=== PATIENT | male | born 1960 | race Caucasian/White ===

== ENCOUNTER 2022-01-15 18:15 | Emergency (ER) | payer OTHER ==
[~2022-01-15] VITALS: Ht 172.7 cm; Wt 60.9 kg
[~2022-01-15 18:15] MED LIST: CHAN0.5P; EXCETAB; MAXA5TAB; TRAM50TA2
[2022-01-15] MEDS ORDERED: HYDR25OI TOP (20:53)
[2022-01-15] MEDS ORDERED: BENA25CA4 PO (20:53)
[2022-01-15] MEDS ORDERED: diphenhydrAMINE 50MG CAP PO ONE (20:55)
[2022-01-15 21:12] VITALS: BP 130/78
== END 2022-01-15 21:15 | disposition home or self-care (01) ==
LOC: M ED 18:15
DX: T78.40XA Allergy, unspecified, initial encounter (principal); M54.9 Dorsalgia, unspecified; F17.200 Nicotine dependence, unspecified, uncomplicated; Z88.0 Allergy status to penicillin

== ENCOUNTER 2022-04-17 10:17 | Emergency (ER) | payer OTHER ==
[~2022-04-17 10:17] MED LIST changes: +BENA25CA4 PO; +HYDR25OI TOP
[2022-04-17 10:54] LABS: HEMOGLOBIN 17.9 g/dl (13.5-17.5); MEAN CORPUSCULAR HEMOGLOBIN 29.6 pg (27.0-33.0); MEAN CORPUSCULAR HGB CONC 33.1 g/dl (32.0-36.5); MEAN CORPUSCULAR VOLUME 89.3 fl (80.0-96.0); PLATELET COUNT, AUTOMATED 172 10^3/uL (150-450); RED BLOOD COUNT 6.05 10^6/uL (4.30-6.10); WHITE BLOOD COUNT 6.6 10^3/uL (4.0-10.0)
[2022-04-17 11:31] LABS: ALBUMIN 3.9 G/DL (3.2-5.2); ALT/SGPT 26 U/L (7.0-40); BILIRUBIN,DIRECT 0.3 MG/DL (<0.4); BILIRUBIN,TOTAL 0.6 MG/DL (0.3-1.2); BLOOD UREA NITROGEN 18 MG/DL (9-23); CALCIUM LEVEL 8.8 MG/DL (8.3-10.6); CARBON DIOXIDE LEVEL 21 MMOL/L (20-31); CHLORIDE LEVEL 102 MMOL/L (98-107); CREATININE FOR GFR 0.88 MG/DL (0.70-1.30); GLOMERULAR FILTRATION RATE > 60.0 (>49); GLUCOSE, FASTING 94 MG/DL (74-106); POTASSIUM SERUM 3.4 MMOL/L (3.5-5.1); SODIUM LEVEL 141 MMOL/L (136-145); TOTAL PROTEIN 6.9 G/DL (5.7-8.2)
[2022-04-17 11:32] LABS: RSV AMPLIFICATION NEGATIVE (NEGATIVE)
[2022-04-17 11:55] LABS: ATYPICAL LYMPH 9 % (0-5); LYMPHOCYTES 25 % (16-44); MONOCYTES 13 % (0-5); NEUTROPHILS 53 % (28-66); PLATELET ESTIMATE NORMAL (NORMAL)
[2022-04-17 12:00] LABS: POIKILOCYTOSIS 1+
[2022-04-17 12:01] LABS: TEAR DROP CELLS 1+
[2022-04-17] MEDS ORDERED: NIRMATRELVIR/RITONAVIR CO-PACK (EMERGENCY USE AUTH) PO SCH ×2 (12:45→21:00)
[2022-04-17 14:00] VITALS: BP 131/76
[2022-04-17] MEDS ORDERED: GABA-1171 PO (14:55)
[2022-04-17] MEDS ORDERED: BUPR150T12 PO (14:55)
[2022-04-17] MEDS ORDERED: ALBU8.5H INH (14:55)
[2022-04-17] MEDS ORDERED: FLUT1BLS5 INH (14:55)
[2022-04-17] MEDS ORDERED: LISI10TA22 PO (14:55)
[2022-04-17] MEDS ORDERED: HOME MED LIST COMPLETE! XX SCH (15:00)
[2022-04-17] MEDS ORDERED: PRED10TA2 PO (15:50)
== END 2022-04-17 16:10 | disposition home or self-care (01) ==
LOC: M ED 10:17 → EDBD 10:17 → M ED 16:10
DX: J44.1 Chronic obstructive pulmonary disease with (acute) exacerbation (principal); U07.1 COVID-19; I45.19 Other right bundle-branch block; I10 Essential (primary) hypertension; G89.29 Other chronic pain; M54.9 Dorsalgia, unspecified; F17.200 Nicotine dependence, unspecified, uncomplicated; Z79.51 Long term (current) use of inhaled steroids; Z79.899 Other long term (current) drug therapy

== ENCOUNTER 2022-05-07 16:58 | Emergency (ER) | payer OTHER ==
[~2022-05-07] VITALS: Ht 172.7 cm; Wt 65.9 kg
[~2022-05-07 16:58] MED LIST changes: +ALBU8.5H INH; +BUPR150T12 PO; +FLUT1BLS5 INH; +GABA-1171 PO; +LISI10TA22 PO; +PRED10TA2 PO
[2022-05-07] MEDS ORDERED: diphenhydrAMINE 50MG/ML VIAL IV STA (23:27)
[2022-05-07] MEDS ORDERED: ACETAMINOPHEN 500 MG TAB PO ONE (23:30)
[2022-05-07] MEDS ORDERED: NS 1,000 ML IV ONE (23:30)
[2022-05-08] MEDS ORDERED: KETOROLAC 30 MG/ML 1ML VIAL IV ONE (01:55)
[2022-05-08 02:56] VITALS: BP 121/72
== END 2022-05-08 03:07 | disposition home or self-care (01) ==
LOC: M ED 16:58
DX: G43.909 Migraine, unspecified, not intractable, without status migrainosus (principal); I10 Essential (primary) hypertension; J44.9 Chronic obstructive pulmonary disease, unspecified; F17.200 Nicotine dependence, unspecified, uncomplicated; Z86.16 Personal history of COVID-19; Z79.899 Other long term (current) drug therapy; Z88.0 Allergy status to penicillin
CPT/HCPCS: 70450; 87428; 96361; 96374; 96375; 99284; J1200; J1885

== ENCOUNTER 2022-05-11 03:36 | Emergency (ER) | payer OTHER ==
[~2022-05-11] VITALS: Ht 172.7 cm; Wt 65.9 kg
[2022-05-11] MEDS ORDERED: diphenhydrAMINE 50MG/ML VIAL IV ONE (06:35)
[2022-05-11] MEDS ORDERED: NS 1,000 ML IV ONE (06:35)
[2022-05-11] MEDS ORDERED: ACETAMINOPHEN 500 MG TAB PO ONE (06:35)
[2022-05-11] MEDS ORDERED: PROMETHAZINE 25MG/ML 1ML VIAL IV ONE (06:35)
[2022-05-11] MEDS ORDERED: KETOROLAC 30 MG/ML 1ML VIAL IV ONE (08:30)
[2022-05-11] MEDS ORDERED: ACET-897 PO (09:34)
[2022-05-11 16:32] LABS: BASO % 0.2 % (0.0-1.0); HEMATOCRIT 45.2 % (42.0-52.0); HEMOGLOBIN 15.1 g/dl (13.5-17.5); LYMPH # 0.7 10^3/uL (1.5-5.0); LYMPH % 10.4 % (24.0-44.0); MEAN CORPUSCULAR HEMOGLOBIN 29.3 pg (27.0-33.0); MEAN CORPUSCULAR HGB CONC 33.4 g/dl (32.0-36.5); MEAN CORPUSCULAR VOLUME 87.6 fl (80.0-96.0); MONO # 0.1 10^3/uL (0.0-0.8); MONO % 1.5 % (2.0-8.0); NEUTROPHILS # 5.8 10^3/uL (1.5-8.5); NEUTROPHILS % 87.6 % (36.0-66.0); PLATELET COUNT, AUTOMATED 325 10^3/uL (150-450); RED BLOOD COUNT 5.16 10^6/uL (4.30-6.10); WHITE BLOOD COUNT 6.7 10^3/uL (4.0-10.0)
[2022-05-11 16:42] LABS: INR 0.98; PROTHROMBIN TIME 13.2 SECONDS (12.5-14.5)
[2022-05-11 16:43] LABS: PARTIAL THROMBOPLASTIN TIME 29.3 SECONDS (24.8-34.2)
[2022-05-11 16:51] LABS: MAGNESIUM LEVEL 1.9 MG/DL (1.8-2.4)
[2022-05-11 16:56] LABS: BLOOD UREA NITROGEN 15 MG/DL (9-23); CALCIUM LEVEL 8.5 MG/DL (8.3-10.6); CARBON DIOXIDE LEVEL 18 MMOL/L (20-31); CHLORIDE LEVEL 108 MMOL/L (98-107); CREATININE FOR GFR 0.69 MG/DL (0.70-1.30); GLOMERULAR FILTRATION RATE > 60.0 (>49); GLUCOSE, FASTING 103 MG/DL (74-106); SODIUM LEVEL 137 MMOL/L (136-145)
[2022-05-11 18:32] LABS: RSV AMPLIFICATION NEGATIVE (NEGATIVE)
[2022-05-11] MEDS ORDERED: APIXABAN 5 MG TAB (ELIQUIS) PO ONE (19:10)
[2022-05-11] MEDS ORDERED: ELIQ5TAB PO (19:25)
[2022-05-11 19:35] VITALS: BP 136/76
== END 2022-05-11 20:01 | disposition home or self-care (01) ==
LOC: M ED 03:36 → EDBD 03:36 → M ED 20:01
DX: I67.6 Nonpyogenic thrombosis of intracranial venous system (principal); I82.C12 Acute embolism and thrombosis of left internal jugular vein; R51.9 Headache, unspecified; I10 Essential (primary) hypertension; M54.2 Cervicalgia; M54.9 Dorsalgia, unspecified; J44.9 Chronic obstructive pulmonary disease, unspecified; F32.9 Major depressive disorder, single episode, unspecified; F41.9 Anxiety disorder, unspecified; Z87.891 Personal history of nicotine dependence
CPT/HCPCS: 70450; 70544; 70551; 80048; 83735; 85025; 85610; 85730; 87631; 96374; 96375; 99284; J1100; J1200; J1885; J2550

== ENCOUNTER → 2022-10-09 | Outpatient (REF) | payer OTHER ==
[~2022-10-09] MED LIST changes: +ACET-897 PO; +ELIQ5TAB PO
[2022-10-09 18:42] LABS: BASO % 0.5 % (0.0-1.0); EOS # 0.1 10^3/uL (0.0-0.5); EOS % 0.6 % (0.0-3.0); HEMATOCRIT 54.3 % (42.0-52.0); HEMOGLOBIN 18.2 g/dl (13.5-17.5); LYMPH # 2.2 10^3/uL (1.5-5.0); LYMPH % 26.1 % (24.0-44.0); MEAN CORPUSCULAR HEMOGLOBIN 30.1 pg (27.0-33.0); MEAN CORPUSCULAR HGB CONC 33.5 g/dl (32.0-36.5); MEAN CORPUSCULAR VOLUME 89.9 fl (80.0-96.0); MONO # 0.8 10^3/uL (0.0-0.8); MONO % 8.9 % (2.0-8.0); NEUTROPHILS # 5.4 10^3/uL (1.5-8.5); NEUTROPHILS % 63.5 % (36.0-66.0); PLATELET COUNT, AUTOMATED 291 10^3/uL (150-450); RED BLOOD COUNT 6.04 10^6/uL (4.30-6.10); WHITE BLOOD COUNT 8.5 10^3/uL (4.0-10.0)
[2022-10-09 18:58] LABS: C REACTIVE PROTEIN QUANTITATIV 2.8 MG/DL (<1.0)
[2022-10-19 18:07] LABS: LIPOPROTEIN (a) 15.6 nmol/L (<75.0)
== END ==
LOC: M SFHCPLAZ 16:52
PROVIDERS: ATTEND Internal Medicine Hematology
DX: I82.90 Acute embolism and thrombosis of unspecified vein (principal)

== ENCOUNTER → 2022-10-10 | Outpatient (CLI) | payer OTHER | LOC: M RAD 12:55 | PROVIDERS: ATTEND Physician Assistant | DX: Z87.891 Personal history of nicotine dependence (principal); J44.9 Chronic obstructive pulmonary disease, unspecified; R91.8 Other nonspecific abnormal finding of lung field ==

== ENCOUNTER → 2022-10-10 | Outpatient (CLI) | payer OTHER | LOC: M LAB 12:58 | PROVIDERS: ATTEND Internal Medicine Hematology | DX: I82.90 Acute embolism and thrombosis of unspecified vein (principal) ==

== ENCOUNTER 2022-11-01 21:14 | Emergency (ER) | payer OTHER ==
[~2022-11-01] VITALS: Ht 172.7 cm; Wt 68.2 kg
[2022-11-01 21:55] LABS: BASO # 0.1 10^3/uL (0.0-0.2); BASO % 0.5 % (0.0-1.0); EOS # 0.1 10^3/uL (0.0-0.5); EOS % 0.5 % (0.0-3.0); HEMATOCRIT 48.3 % (42.0-52.0); HEMOGLOBIN 16.3 g/dl (13.5-17.5); MEAN CORPUSCULAR HEMOGLOBIN 29.9 pg (27.0-33.0); MEAN CORPUSCULAR HGB CONC 33.7 g/dl (32.0-36.5); MEAN CORPUSCULAR VOLUME 88.5 fl (80.0-96.0); MONO # 1.2 10^3/uL (0.0-0.8); MONO % 6.4 % (2.0-8.0); PLATELET COUNT, AUTOMATED 349 10^3/uL (150-450); RED BLOOD COUNT 5.46 10^6/uL (4.30-6.10); WHITE BLOOD COUNT 18.5 10^3/uL (4.0-10.0)
[2022-11-01] MEDS ORDERED: NS 1,000 ML IV ONE (22:25)
[2022-11-01] MEDS ORDERED: HALOPERIDOL 5MG/ML 1ML VIAL IV ONE (22:25)
[2022-11-01 22:28] LABS: LIPASE 40 U/L (12-53)
[2022-11-01 22:30] LABS: ALKALINE PHOSPHATASE 78 U/L (46-116); ALT/SGPT 20 U/L (7.0-40); AST/SGOT 12 U/L (<34); BILIRUBIN,DIRECT 0.1 MG/DL (<0.4); BILIRUBIN,TOTAL 0.4 MG/DL (0.3-1.2); BLOOD UREA NITROGEN 15 MG/DL (9-23); CALCIUM LEVEL 9.1 MG/DL (8.3-10.6); CARBON DIOXIDE LEVEL 22 MMOL/L (20-31); CHLORIDE LEVEL 104 MMOL/L (98-107); CREATININE FOR GFR 0.89 MG/DL (0.70-1.30); GLOMERULAR FILTRATION RATE > 60.0 (>49); GLUCOSE, FASTING 130 MG/DL (74-106); POTASSIUM SERUM 4.4 MMOL/L (3.5-5.1); SODIUM LEVEL 137 MMOL/L (136-145); TOTAL PROTEIN 6.7 G/DL (5.7-8.2)
[2022-11-02] MEDS ORDERED: LevoFLOXacin IV 750 MG in IV 1 EA IV ONE (00:10)
[2022-11-02] MEDS ORDERED: NS 1,000 ML IV ONE (00:35)
[2022-11-02] MEDS ORDERED: ONDA4TAB6 PO (01:27)
[2022-11-02] MEDS ORDERED: LEVO1TAB40 PO (01:27)
[2022-11-02 02:21] VITALS: BP 134/67; TEMP 98.6; O2SAT 96
== END 2022-11-02 02:41 | disposition home or self-care (01) ==
LOC: M ED 21:14 → EDBD 21:14 → M ED 11-02 02:41
DX: J18.9 Pneumonia, unspecified organism (principal); F12.188 Cannabis abuse with other cannabis-induced disorder; I10 Essential (primary) hypertension; J44.9 Chronic obstructive pulmonary disease, unspecified; Z79.899 Other long term (current) drug therapy; Z88.0 Allergy status to penicillin; Z88.2 Allergy status to sulfonamides; Z88.1 Allergy status to other antibiotic agents
CPT/HCPCS: 71045; 80048; 80076; 83605; 83690; 85025; 96361; 96365; 96366; 96375; 99284; J1630; J1956

== ENCOUNTER → 2022-11-15 | Outpatient (REF) | payer OTHER ==
[~2022-11-15] MED LIST changes: +LEVO1TAB40 PO; +ONDA4TAB6 PO
[2022-11-15 19:10] LABS: HIV 1&2 SCREEN NEGATIVE (NEGATIVE)
[2022-11-15 19:18] LABS: HEPATITIS C VIRUS ABY INDEX 0.08 INDEX (<0.8)
[2022-11-15 19:28] LABS: BLOOD UREA NITROGEN 13 MG/DL (9-23); CALCIUM LEVEL 8.8 MG/DL (8.3-10.6); CARBON DIOXIDE LEVEL 25 MMOL/L (20-31); CHLORIDE LEVEL 105 MMOL/L (98-107); CREATININE FOR GFR 0.95 MG/DL (0.70-1.30); GLOMERULAR FILTRATION RATE > 60.0 (>49); GLUCOSE, FASTING 90 MG/DL (74-106); SODIUM LEVEL 138 MMOL/L (136-145)
== END ==
LOC: M LAB REF 17:33
PROVIDERS: ATTEND Physician Assistant
DX: Z11.59 Encounter for screening for other viral diseases (principal); Z11.4 Encounter for screening for human immunodeficiency virus [HIV]; I10 Essential (primary) hypertension; R39.11 Hesitancy of micturition

== ENCOUNTER → 2022-11-20 | Outpatient (CLI) | payer OTHER | LOC: M PLALAB 13:36 | PROVIDERS: ATTEND Internal Medicine Hematology | DX: D75.1 Secondary polycythemia (principal) ==

== ENCOUNTER → 2023-04-17 | Outpatient (REF) | payer OTHER ==
[2023-04-17 17:06] LABS: HEMOGLOBIN A1c 5.3 % (4.0-6.0)
[2023-04-17 17:12] LABS: ALBUMIN 3.9 G/DL (3.2-5.2); ALKALINE PHOSPHATASE 95 U/L (46-116); ALT/SGPT 10 U/L (7.0-40); AST/SGOT 13 U/L (<34); BILIRUBIN,TOTAL 0.7 MG/DL (0.3-1.2); BLOOD UREA NITROGEN 13 MG/DL (9-23); CALCIUM LEVEL 8.9 MG/DL (8.3-10.6); CARBON DIOXIDE LEVEL 28 MMOL/L (20-31); CHLORIDE LEVEL 102 MMOL/L (98-107); CHOLESTEROL LEVEL 157 MG/DL (<200); CHOLESTEROL RISK RATIO 3.81 (<5); CREATININE FOR GFR 0.96 MG/DL (0.70-1.30); GLOMERULAR FILTRATION RATE > 60.0 (>49); GLUCOSE, FASTING 77 MG/DL (74-106); HDL CHOLESTEROL 41.2 MG/DL (>40); LDL CHOLESTEROL 96.4 MG/DL (<100); NON-HDL-C 115.8 MG/DL; POTASSIUM SERUM 5.9 MMOL/L (3.5-5.1); SODIUM LEVEL 136 MMOL/L (136-145); THYROID STIMULATING HORMONE 1.102 uIU/ML (0.55-4.78); TOTAL 25(OH) VITAMIN D 23.1 NG/ML (20.0-100.0); TOTAL PROTEIN 6.8 G/DL (5.7-8.2); TRIGLYCERIDES LEVEL 97 MG/DL (<150)
== END ==
LOC: M LAB REF 16:27
PROVIDERS: ATTEND Nurse Practitioner Family
DX: I10 Essential (primary) hypertension (principal); E55.9 Vitamin D deficiency, unspecified; Z13.228 Encounter for screening for other metabolic disorders

== ENCOUNTER 2024-05-03 18:29 | Emergency (ER) | payer OTHER ==
[~2024-05-03] VITALS: Ht 172.7 cm; Wt 63.6 kg
[~2024-05-03 18:29] MED LIST changes: +ONDA-282 PO; -ONDA4TAB6 PO; +PERC5TAB12 PO
[2024-05-03] MEDS: NS 500 ML IV ONE (19:24)
[2024-05-03] MEDS: METHOCARBAMOL 1,000 MG/10 ML VIAL IV ONE (20:00)
[2024-05-03] MEDS: NS 1,000 ML IV ONE (22:20)
[2024-05-03 22:51] LABS: BLOOD UREA NITROGEN 14 MG/DL (9-23); CALCIUM LEVEL 8.7 MG/DL (8.3-10.6); CARBON DIOXIDE LEVEL 25 MMOL/L (20-31); CHLORIDE LEVEL 109 MMOL/L (98-107); CREATININE FOR GFR 0.96 MG/DL (0.70-1.30); GLOMERULAR FILTRATION RATE > 60.0 (>49); GLUCOSE, FASTING 104 MG/DL (74-106); POTASSIUM SERUM 4.8 MMOL/L (3.5-5.1); SODIUM LEVEL 140 MMOL/L (136-145)
[2024-05-03 22:52] LABS: CPK CREATINE PHOSPHOKINASE 64 U/L (46-171)
[2024-05-03] MEDS: GABAPENTIN 300 MG CAP PO ONE (23:44)
[2024-05-04] MEDS ORDERED: METH-1165 PO (00:39)
[2024-05-04] MEDS ORDERED: PRED20TA PO (00:39)
[2024-05-04 01:02] VITALS: BP 114/69; TEMP 97.7; O2SAT 98
== END 2024-05-04 01:04 | disposition home or self-care (01) ==
LOC: M ED 18:29 → EDBD 18:29 → M ED 05-04 01:04
DX: M54.50 Low back pain, unspecified (principal); Z79.899 Other long term (current) drug therapy; Z88.0 Allergy status to penicillin; Z88.2 Allergy status to sulfonamides
CPT/HCPCS: 72131; 80047; 80048; 82550; 99284; J2800

== ENCOUNTER 2024-08-06 21:50 | Inpatient (IN) | payer OTHER ==
[~2024-08-06] VITALS: Ht 170.2 cm; Wt 78.0 kg
[~2024-08-06 21:50] MED LIST changes: +METH-1165 PO; +PRED20TA PO
[2024-08-06 22:23] LABS: VENOUS HCO3 21.6 MMOL/L (23.0-27.0); VENOUS PARTIAL PRESSURE CO2 59.6 mmHg (38.0-50.0); VENOUS PARTIAL PRESSURE O2 31.1 mmHg (30.0-50.0); VENOUS PH 7.178 UNITS (7.330-7.430); VENOUS TOTAL CO2 23.5 MMOL/L (24.0-28.0)
[2024-08-06 22:27] LABS: BASO % 0.2 % (0.0-1.0); EOS % 0.2 % (0.0-3.0); HEMATOCRIT 53.1 % (42.0-52.0); HEMOGLOBIN 18.3 g/dl (13.5-17.5); LYMPH # 1.4 10^3/uL (1.5-5.0); MEAN CORPUSCULAR HGB CONC 34.5 g/dl (32.0-36.5); MEAN CORPUSCULAR VOLUME 92.8 fl (80.0-96.0); MONO # 1.3 10^3/uL (0.0-0.8); NEUTROPHILS # 11.3 10^3/uL (1.5-8.5); NEUTROPHILS % 80.2 % (36.0-66.0); PLATELET COUNT, AUTOMATED 260 10^3/uL (150-450); RED BLOOD COUNT 5.72 10^6/uL (4.30-6.10); WHITE BLOOD COUNT 14.1 10^3/uL (4.0-10.0)
[2024-08-06] MEDS: IPRATROPIUM 0.5MG/ALBUTEROL 2.5MG INH SOL UD 3ML (DUONEB) NEB ONE (22:34)
[2024-08-06 22:40] LABS: ABG HCO3 16.5 MMOL/L (22.0-26.0); ABG O2 SATURATION 96.1 % (95.0-99.0); ABG PARTIAL PRESSURE CO2 26.5 mmHg (35.0-45.0); ABG PARTIAL PRESSURE O2 81.2 mmHg (75.0-100.0); ABG STANDARD HCO3 19.6 MMOL/L. (22.0-26.0); ABG TOTAL CO2 17.3 MMOL/L (23.0-31.0); ABG pH (ARTERIAL) 7.412 UNITS (7.350-7.450)
[2024-08-06 23:01] LABS: ALBUMIN 4.3 G/DL (3.2-5.2); ALKALINE PHOSPHATASE 98 U/L (40-129); ALT/SGPT 18 U/L (7.0-40); AST/SGOT 42 U/L (<34); BILIRUBIN,DIRECT 0.2 MG/DL (<0.4); BILIRUBIN,TOTAL 0.7 MG/DL (0.3-1.2); BLOOD UREA NITROGEN 17 MG/DL (9-23); CALCIUM LEVEL 9.1 MG/DL (8.3-10.6); CARBON DIOXIDE LEVEL 22 MMOL/L (20-31); CHLORIDE LEVEL 101 MMOL/L (98-107); CREATININE FOR GFR 0.83 MG/DL (0.70-1.30); GLOMERULAR FILTRATION RATE > 60.0 (>49); GLUCOSE, FASTING 88 MG/DL (74-106); POTASSIUM SERUM 4.5 MMOL/L (3.5-5.1); SODIUM LEVEL 138 MMOL/L (136-145); TOTAL PROTEIN 7.8 G/DL (5.7-8.2)
[2024-08-07] MEDS ORDERED: PRED10TA2 PO ×2 (00:12→04:31)
[2024-08-07] MEDS ORDERED: MED REC IN PROGRESS XX SCH (04:40)
[2024-08-07] MEDS ORDERED: MOM 30ML SUSPENSION UDC PO PRN (04:50)
[2024-08-07] MEDS: methylPREDNISolone 125MG 2ML VIAL IV SCH (06:11)
[2024-08-07 06:26] LABS: HEMATOCRIT 50.8 % (42.0-52.0); HEMOGLOBIN 17.4 g/dl (13.5-17.5); MEAN CORPUSCULAR HEMOGLOBIN 30.9 pg (27.0-33.0); MEAN CORPUSCULAR HGB CONC 34.3 g/dl (32.0-36.5); MEAN CORPUSCULAR VOLUME 90.2 fl (80.0-96.0); PLATELET COUNT, AUTOMATED 232 10^3/uL (150-450); RED BLOOD COUNT 5.63 10^6/uL (4.30-6.10); WHITE BLOOD COUNT 9.7 10^3/uL (4.0-10.0)
[2024-08-07 07:02] LABS: ALBUMIN 3.9 G/DL (3.2-5.2); ALKALINE PHOSPHATASE 86 U/L (40-129); ALT/SGPT 14 U/L (7.0-40); AST/SGOT 22 U/L (<34); BILIRUBIN,TOTAL 0.6 MG/DL (0.3-1.2); BLOOD UREA NITROGEN 19 MG/DL (9-23); CALCIUM LEVEL 9.2 MG/DL (8.3-10.6); CARBON DIOXIDE LEVEL 24 MMOL/L (20-31); CHLORIDE LEVEL 105 MMOL/L (98-107); GLOMERULAR FILTRATION RATE > 60.0 (>49); GLUCOSE, FASTING 112 MG/DL (74-106); POTASSIUM SERUM 4.6 MMOL/L (3.5-5.1); SODIUM LEVEL 139 MMOL/L (136-145); TOTAL PROTEIN 7.2 G/DL (5.7-8.2)
[2024-08-07] MEDS: IPRATROPIUM 0.5MG/ALBUTEROL 2.5MG INH SOL UD 3ML (DUONEB) NEB SCH (08:00)
[2024-08-07] MEDS ORDERED: IPRATROPIUM 0.5MG/ALBUTEROL 2.5MG INH SOL UD 3ML (DUONEB) NEB SCH (08:00)
[2024-08-07 08:45] VITALS: BP 120/80; TEMP 97.5; O2SAT 96
[2024-08-07] MEDS ORDERED: HEPARIN SOD (PORCINE) 5000UNITS/ML 1ML VIAL/SYRINGE SC SCH (09:00)
[2024-08-07] MEDS: PANTOPRAZOLE 40MG TAB (PROTONIX) PO SCH (09:09)
[2024-08-07] MEDS: AZITHROMYCIN 250MG TABLET PO SCH (09:09)
[2024-08-07] MEDS: guaiFENesin ER TABLET 600 MG TAB PO SCH (09:09)
[2024-08-07] MEDS ORDERED: HOME MED LIST COMPLETE! XX SCH (09:15)
[2024-08-07] MEDS ORDERED: FLUT1BLS6 INH (09:15)
[2024-08-07] MEDS ORDERED: ACET-683 PO (09:15)
[2024-08-07] MEDS ORDERED: SUMA50TA2 PO (09:15)
[2024-08-07] MEDS ORDERED: INCR1INH INH (09:15)
[2024-08-07] MEDS ORDERED: ELIQ5TAB PO (09:15)
[2024-08-07] MEDS ORDERED: GABA-1172 PO (09:15)
[2024-08-07 09:22] VITALS: O2SAT 93
[2024-08-07] MEDS: BUDESONIDE 0.5 MG/2 ML INHALATION SUSPENSION NEB SCH (09:49)
[2024-08-07] MEDS: FORMOTEROL FUMARATE 20 MCG/2 ML INHALATION SOLUTION (PERFOROMIST) INH SCH (09:49)
[2024-08-07] MEDS: methylPREDNISolone 40MG 1ML VIAL IV SCH (11:32)
[2024-08-07 11:35] VITALS: BP 103/73; TEMP 98.1; O2SAT 92
[2024-08-07] MEDS: ACETAMINOPHEN 325 MG TAB PO PRN (17:20)
[2024-08-07 20:15] VITALS: BP 123/75; TEMP 98.1; O2SAT 93
[2024-08-08 03:25] VITALS: BP 120/73; TEMP 97.9; O2SAT 95
[2024-08-08 06:09] LABS: BASO % 0.1 % (0.0-1.0); HEMATOCRIT 44.6 % (42.0-52.0); HEMOGLOBIN 15.6 g/dl (13.5-17.5); LYMPH # 0.6 10^3/uL (1.5-5.0); LYMPH % 4.2 % (24.0-44.0); MEAN CORPUSCULAR HEMOGLOBIN 31.3 pg (27.0-33.0); MEAN CORPUSCULAR VOLUME 89.4 fl (80.0-96.0); MONO # 0.6 10^3/uL (0.0-0.8); NEUTROPHILS # 12.7 10^3/uL (1.5-8.5); NEUTROPHILS % 91.3 % (36.0-66.0); PLATELET COUNT, AUTOMATED 243 10^3/uL (150-450); RED BLOOD COUNT 4.99 10^6/uL (4.30-6.10); WHITE BLOOD COUNT 13.9 10^3/uL (4.0-10.0)
[2024-08-08 06:31] LABS: BLOOD UREA NITROGEN 23 MG/DL (9-23); CARBON DIOXIDE LEVEL 22 MMOL/L (20-31); CHLORIDE LEVEL 107 MMOL/L (98-107); CREATININE FOR GFR 0.77 MG/DL (0.70-1.30); GLOMERULAR FILTRATION RATE > 60.0 (>49); GLUCOSE, FASTING 127 MG/DL (74-106); POTASSIUM SERUM 4.1 MMOL/L (3.5-5.1); SODIUM LEVEL 139 MMOL/L (136-145)
[2024-08-08] MEDS ORDERED: methylPREDNISolone 125MG 2ML VIAL As Ordered ONE (08:10)
[2024-08-08] MEDS: ALBUTEROL 90 MCG/ACT 8GM HFA INHALER INH PRN (08:16)
[2024-08-08] MEDS: methylPREDNISolone 125MG 2ML VIAL IV ONE (08:19)
[2024-08-08] MEDS: ALPRAZolam 0.25 MG TAB PO ONE (08:19)
[2024-08-08] MEDS ORDERED: ALBUTEROL SULFATE 2.5MG/0.5ML INH NEB SOLN NEB PRN (10:15)
[2024-08-08 11:40] VITALS: BP 139/78; TEMP 97.9; O2SAT 92
[2024-08-08] MEDS: ALBUTEROL 90 MCG/ACT 8GM HFA INHALER INH SCH (11:50)
[2024-08-08] MEDS ORDERED: methylPREDNISolone 40MG 1ML VIAL IV SCH (14:00)
[2024-08-08] MEDS: APIXABAN 5 MG TAB (ELIQUIS) PO SCH (14:45)
[2024-08-08] MEDS: DEXTROMETHORPHAN 60MG/10ML SUSP 90ML BTL(DELSYM) PO SCH (14:45)
[2024-08-08 19:31] VITALS: BP 119/79; TEMP 97.9; O2SAT 92
[2024-08-08] MEDS: ADVAIR HFA 230/21MCG INHALER INH SCH (19:35)
[2024-08-08] MEDS: GABAPENTIN 300 MG CAP PO SCH (20:53)
[2024-08-08] MEDS: methylPREDNISolone 40MG 1ML VIAL IV SCH (20:53)
[2024-08-09 03:20] VITALS: BP 120/75; TEMP 97.7; O2SAT 92
[2024-08-09 06:07] LABS: BASO % 0.1 % (0.0-1.0); EOS % 0.1 % (0.0-3.0); HEMATOCRIT 44.4 % (42.0-52.0); HEMOGLOBIN 14.9 g/dl (13.5-17.5); LYMPH # 0.7 10^3/uL (1.5-5.0); LYMPH % 4.6 % (24.0-44.0); MEAN CORPUSCULAR HEMOGLOBIN 30.1 pg (27.0-33.0); MEAN CORPUSCULAR HGB CONC 33.6 g/dl (32.0-36.5); MEAN CORPUSCULAR VOLUME 89.7 fl (80.0-96.0); MONO # 0.7 10^3/uL (0.0-0.8); MONO % 4.4 % (2.0-8.0); NEUTROPHILS # 14.3 10^3/uL (1.5-8.5); NEUTROPHILS % 90.4 % (36.0-66.0); PLATELET COUNT, AUTOMATED 274 10^3/uL (150-450); RED BLOOD COUNT 4.95 10^6/uL (4.30-6.10); WHITE BLOOD COUNT 15.8 10^3/uL (4.0-10.0)
[2024-08-09 06:32] LABS: BLOOD UREA NITROGEN 27 MG/DL (9-23); CALCIUM LEVEL 8.5 MG/DL (8.3-10.6); CARBON DIOXIDE LEVEL 22 MMOL/L (20-31); CHLORIDE LEVEL 108 MMOL/L (98-107); CREATININE FOR GFR 0.75 MG/DL (0.70-1.30); GLOMERULAR FILTRATION RATE > 60.0 (>49); GLUCOSE, FASTING 114 MG/DL (74-106); POTASSIUM SERUM 4.1 MMOL/L (3.5-5.1); SODIUM LEVEL 141 MMOL/L (136-145)
[2024-08-09] MEDS: TIOTROPIUM INHALER/CAPSULE (SPIRIVA) INH SCH (07:33)
[2024-08-09 12:00] VITALS: BP 121/77; TEMP 97.9; O2SAT 92
[2024-08-09 20:11] VITALS: BP 121/77; TEMP 97.9; O2SAT 92
[2024-08-09 20:22] VITALS: BP 121/77
[2024-08-10 03:37] VITALS: BP 122/73; TEMP 97.7; O2SAT 91
[2024-08-10 06:20] LABS: BASO % 0.1 % (0.0-1.0); HEMATOCRIT 43.9 % (42.0-52.0); LYMPH # 0.9 10^3/uL (1.5-5.0); LYMPH % 8.1 % (24.0-44.0); MEAN CORPUSCULAR HEMOGLOBIN 30.9 pg (27.0-33.0); MEAN CORPUSCULAR HGB CONC 34.2 g/dl (32.0-36.5); MEAN CORPUSCULAR VOLUME 90.3 fl (80.0-96.0); MONO # 0.5 10^3/uL (0.0-0.8); MONO % 4.9 % (2.0-8.0); NEUTROPHILS % 86.4 % (36.0-66.0); PLATELET COUNT, AUTOMATED 254 10^3/uL (150-450); RED BLOOD COUNT 4.86 10^6/uL (4.30-6.10); WHITE BLOOD COUNT 10.5 10^3/uL (4.0-10.0)
[2024-08-10 06:50] LABS: BLOOD UREA NITROGEN 23 MG/DL (9-23); CALCIUM LEVEL 8.3 MG/DL (8.3-10.6); CARBON DIOXIDE LEVEL 25 MMOL/L (20-31); CHLORIDE LEVEL 108 MMOL/L (98-107); CREATININE FOR GFR 0.76 MG/DL (0.70-1.30); GLOMERULAR FILTRATION RATE > 60.0 (>49); GLUCOSE, FASTING 100 MG/DL (74-106); POTASSIUM SERUM 4.5 MMOL/L (3.5-5.1); SODIUM LEVEL 140 MMOL/L (136-145)
[2024-08-10 12:00] VITALS: BP 133/89; TEMP 98.4; O2SAT 91
[2024-08-10] MEDS ORDERED: PRED10TA2 PO (12:30)
[2024-08-10] MEDS ORDERED: PANT40TA29 PO (12:30)
[2024-08-10] MEDS ORDERED: AZIT-12 PO (12:30)
== END 2024-08-10 14:27 | disposition home or self-care (01) | DRG 140 ==
LOC: EDBD 21:50 → M ED 21:50 → M ED INP 08-07 04:48 → M MSPAV 08-07 08:45
PROVIDERS: ADMIT Internal Medicine; ATTEND Internal Medicine Nephrology
DX: J44.1 Chronic obstructive pulmonary disease with (acute) exacerbation (principal); J96.01 Acute respiratory failure with hypoxia; J96.02 Acute respiratory failure with hypercapnia; I10 Essential (primary) hypertension; B34.2 Coronavirus infection, unspecified; F17.210 Nicotine dependence, cigarettes, uncomplicated; M54.16 Radiculopathy, lumbar region; Z79.52 Long term (current) use of systemic steroids; Z88.0 Allergy status to penicillin; Z88.1 Allergy status to other antibiotic agents; Z88.2 Allergy status to sulfonamides; G43.909 Migraine, unspecified, not intractable, without status migrainosus; Z86.711 Personal history of pulmonary embolism

== ENCOUNTER 2025-02-10 05:44 | Emergency (ER) | payer OTHER ==
[~2025-02-10] VITALS: Ht 172.7 cm; Wt 57.5 kg
[~2025-02-10 05:44] MED LIST changes: +ACET-683 PO; +AZIT-12 PO; +FLUT1BLS6 INH; +GABA-1172 PO; +INCR1INH INH; +PANT40TA29 PO; +SUMA50TA2 PO; +VITA200032 PO
[2025-02-10 05:52] VITALS: TEMP 96.4
[2025-02-10 06:12] LABS: BASO # 0.0 10^3/uL (0.0-0.2); BASO % 0.3 % (0.0-1.0); EOS # 0.1 10^3/uL (0.0-0.5); EOS % 0.7 % (0.0-3.0); LYMPH # 1.5 10^3/uL (1.5-5.0); LYMPH % 11.5 % (24.0-44.0); MONO # 1.2 10^3/uL (0.0-0.8); MONO % 9.0 % (2.0-8.0); NEUTROPHILS # 10.1 10^3/uL (1.5-8.5); NEUTROPHILS % 78.2 % (36.0-66.0); PLATELET COUNT, AUTOMATED 268 10^3/uL (150-450)
[2025-02-10] MEDS: IPRATROPIUM 0.5 MG/ALBUTEROL 2.5 MG INH SOL UD 3 ML NEB SCH (06:16)
[2025-02-10 06:19] LABS: VENOUS BASE EXCESS -3.7 (-2.0-2.0); VENOUS HCO3 22.1 MMOL/L (23.0-27.0); VENOUS O2 SATURATION 65.2 % (60.0-80.0); VENOUS PARTIAL PRESSURE CO2 42.5 mmHg (38.0-50.0); VENOUS PARTIAL PRESSURE O2 35.6 mmHg (30.0-50.0); VENOUS PH 7.334 UNITS (7.330-7.430); VENOUS STANDARD HCO3 20.6 MMOL/L; VENOUS TOTAL CO2 23.4 MMOL/L (24.0-28.0)
[2025-02-10 06:42] LABS: CK-MB VALUE MASS 1.7 NG/ML (<3.6)
[2025-02-10 06:44] LABS: ALT/SGPT 12.0 U/L (7.0-40); AST/SGOT 18.0 U/L (<34); CALCIUM LEVEL 9.2 MG/DL (8.3-10.6); CARBON DIOXIDE LEVEL 25.0 MMOL/L (20-31); CHLORIDE LEVEL 104.0 MMOL/L (98-107); CPK CREATINE PHOSPHOKINASE 156.0 U/L (46-171); CREATININE FOR GFR 0.98 MG/DL (0.70-1.30); GLOMERULAR FILTRATION RATE 86.7 (>49); MB/CK RELATIVE INDEX 1.08 (< OR =4); POTASSIUM SERUM 4.0 MMOL/L (3.5-5.1); SODIUM LEVEL 138.0 MMOL/L (136-145)
[2025-02-10] MEDS: NS 500 ML IV ONE (07:00)
[2025-02-10] MEDS ORDERED: ISOVUE-370 76% 100 ML VIAL As Ordered ONE (07:27)
[2025-02-10 07:34] VITALS: BP 116/64
[2025-02-10 07:45] VITALS: O2SAT 96
[2025-02-10 09:17] LABS: CK-MB VALUE MASS 1.5 NG/ML (<3.6)
[2025-02-10 09:18] LABS: CPK CREATINE PHOSPHOKINASE 155.0 U/L (46-171); MB/CK RELATIVE INDEX 0.96 (< OR =4)
[2025-02-10] MEDS: BENZONATATE 100 MG CAPSULE PO ONE (09:43)
[2025-02-10] MEDS ORDERED: PRED10TA2 PO (09:54)
[2025-02-10] MEDS ORDERED: VENTAER INH (09:54)
[2025-02-10] MEDS ORDERED: BENZ-18 PO (09:55)
[2025-02-10] MEDS ORDERED: MOXI1TAB PO (09:55)
== END 2025-02-10 10:19 | disposition home or self-care (01) ==
LOC: M ED 05:44
DX: J44.1 Chronic obstructive pulmonary disease with (acute) exacerbation (principal); I10 Essential (primary) hypertension; F17.200 Nicotine dependence, unspecified, uncomplicated; Z88.0 Allergy status to penicillin; Z88.2 Allergy status to sulfonamides; R94.31 Abnormal electrocardiogram [ECG] [EKG]; Z79.899 Other long term (current) drug therapy
CPT/HCPCS: 36415; 71045; 71275; 80048; 80076; 82550; 82553; 82803; 83605; 84145; 84484; 85025; 87486; 87581; 87633; 87798; 93005; 93041; 94640; 94760; 99285; Q9967